=== PATIENT | male | born 1945 | race Caucasian/White ===

== ENCOUNTER 2017-04-09 11:10 | Emergency (ER) | payer MEDICARE, BC | END 2017-04-09 12:24 | disposition home or self-care (01) | LOC: ER 11:10 | DX: R55 Syncope and collapse (principal); I10 Essential (primary) hypertension; F17.210 Nicotine dependence, cigarettes, uncomplicated; Z79.899 Other long term (current) drug therapy | CPT/HCPCS: 36415 ==